=== PATIENT | male | born 2000 | race Two or more races ===

== ENCOUNTER 2024-12-10 10:55 | Emergency (ER) | payer BC ==
[~2024-12-10] VITALS: Ht 165.1 cm; Wt 81.6 kg
[2024-12-10] MEDS ORDERED: 0.9 % SODIUM CHLORIDE 1,000 ML IV ONE (11:45)
[2024-12-10] MEDS ORDERED: KETOROLAC TROMETHAMINE 30 MG VIAL IU ONE (11:45)
[2024-12-10] MEDS ORDERED: TAMSULOSIN HCL 0.4 MG CAP PO ONE ×2 (11:45→11:51)
[2024-12-10] MEDS ORDERED: CEFTRIAXONE SODIUM 1,000 MG VIAL IV ONE (11:45)
[2024-12-10] MEDS ORDERED: FAMOtidine 10 MG/ML (4ML VIAL) IV ONE (11:45)
[2024-12-10] MEDS ORDERED: KETOROLAC TROMETHAMINE 30 MG VIAL ONE (11:51)
[2024-12-10] MEDS ORDERED: FAMOTIDINE/PF 20 MG/2 ML VIAL ONE (12:19)
[2024-12-10] MEDS ORDERED: CEFTRIAXONE SODIUM 1,000 MG VIAL ONE (12:19)
[2024-12-10 12:34] LABS: HEMATOCRIT 45.1 % (39.0-48.0); HEMOGLOBIN 15.4 g/dL (13-16.00); MEAN CELL VOLUME 93.6 fL (80.0-100.00); MEAN CORPUSCULAR HEMOGLOBIN 31.9 pg (27.00-32.0); PLATELET COUNT 237 K/uL (150-450); RED BLOOD COUNT 4.82 M/uL (4.00-6.00); RED CELL DISTRIBUTION WIDTH 12.7 % (11.5-14.5)
[2024-12-10 12:38] LABS: URINE APPEARANCE Turbid; URINE BILIRRUBIN Small (NEGATIVE); URINE BLOOD Large; URINE COLOR Orange; URINE GLUCOSE Negative (NEGATIVE); URINE LEUKOCYTE Small; URINE NITRATE Negative
[2024-12-10 12:42] LABS: URINE BACTERIA 293.7 uL (0.0-1933); URINE CAST 1.74 uL (0.0-1.40); URINE EPITHELIAL CELLS 18.2 uL (0.0-38.8); URINE WBC 227.6 uL (0.0-23.2)
[2024-12-10] MEDS ORDERED: MORPHINE SULFATE 2 MG/ML SYRINGE IV ONE (12:45)
[2024-12-10 12:46] LABS: INR 1.21; PARTIAL THROMBOPLASTIN TIME 23.4 SECONDS (22.0-34.0)
[2024-12-10 12:58] LABS: URINE KETONE 80 (NEGATIVE); URINE PROTEIN 100 (NEGATIVE); URINE RBC > 10558.9 uL (0.0-20.8)
[2024-12-10 13:06] LABS: ALBUMIN 4.4 gm/dL (3.4-5.0); BILIRUBIN TOTAL 1.6 mg/dL (0.3-1.2); CALCIUM 9.3 mg/dL (8.5-10.1); CREATININE SERUM 1.37 mg/dL (0.70-1.30); GFR 63.31; POTASSIUM 3.06 mEq/L (3.5-5.1); TOTAL PROTEIN 7.4 gm/dL (6.4-8.2)
[2024-12-10] MEDS ORDERED: ONDANSETRON HCL 2 MG/ML VIAL IV ONE (15:15)
[2024-12-10] MEDS ORDERED: ONDANSETRON HCL 2 MG/ML VIAL ONE (15:17)
[2024-12-10] MEDS ORDERED: MORPHINE SULFATE 2 MG/ML SYRINGE IV SCH (17:00)
[2024-12-10] MEDS ORDERED: KETOROLAC TROMETHAMINE 60 MG VIAL IM ONE ×2 (21:29→21:30)
[2024-12-10] MEDS ORDERED: OxyCODONE HCL/APAP UD (PERCOCET) PO ONE (21:30)
== END 2024-12-10 19:23 | disposition home or self-care (01) ==
LOC: ER 10:58
PROVIDERS: General Practice
DX: N20.0 Calculus of kidney (principal); R10.9 Unspecified abdominal pain; N20.1 Calculus of ureter